=== PATIENT | female | born 1945 | race Caucasian/White ===

== ENCOUNTER 2019-09-05 19:43 | Inpatient (IN) ==
[2019-09-05] MEDS ORDERED: GuaiFENesin Liq 200 MG/10 ML UDC PO PRN (23:12)
[2019-09-05] MEDS ORDERED: Furosemide 20 MG TABLET PO PRN (23:13)
[2019-09-05] MEDS ORDERED: Albuterol 2.5 MG/3 ML NEBULIZER IH PRN (23:35)
[2019-09-05] MEDS: hydrOXYzine pamoate 25 MG CAPSULE PO PRN (23:48)
[2019-09-05] MEDS: Budesonide/Formoterol 160/4.5 1 PUFF INH IH SCH (23:59)
[2019-09-06] MEDS: Budesonide/Formoterol 160/4.5 1 PUFF INH IH SCH ×2 (08:24→22:38)
[2019-09-06] MEDS: Tiotropium 18 MCG inhalation IH SCH (08:24)
[2019-09-06] MEDS: Ammonium Lactate 30 APPL/225 GM BOTTLE TP SCH ×2 (09:35→20:20)
[2019-09-06] MEDS: Aspirin Enteric Coated 81 MG Tablet PO SCH (09:36)
[2019-09-06] MEDS: Gabapentin 100 MG CAPSULE PO SCH ×3 (09:36→20:19)
[2019-09-06] MEDS: Furosemide 20 MG TABLET PO SCH (09:37)
[2019-09-06] MEDS: Doxycycline 100 MG CAPSULE PO SCH ×2 (09:37→20:20)
[2019-09-06] MEDS: amLODIPine 5 MG TABLET PO SCH (09:37)
[2019-09-06] MEDS: predniSONE 20 MG TABLET PO SCH (09:37)
[2019-09-06] MEDS: Clobetasol Propionate 0.05% 15 GM Cream Tube TP SCH ×2 (09:38→20:21)
[2019-09-06] MEDS: DALIRESP 500 MCG PO SCH (09:38)
[2019-09-06 10:28] LABS: Hematocrit 39.5 % (35.3-44.9); Hemoglobin 12.7 g/dL (11.5-15.4); Mean Corpuscular HGB Conc 32.2 g/dL (31.6-35.5); Mean Corpuscular Hemoglobin 28.7 pg (28.0-33.3); Mean Corpuscular Volume 89.2 fL (83.0-100.0); Platelet Count 370 K/mcL (140-400); Red Blood Count 4.43 M/mcL (3.82-4.97); Red Cell Distribution Width 12.7 % (11.5-14.5); White Blood Count 15.6 K/mcL (4.3-11.1)
[2019-09-06 10:46] LABS: BUN/Creatinine Ratio 27 (6-26); Blood Urea Nitrogen 26 mg/dL (8-23); Calcium 8.9 mg/dL (8.6-10.3); Carbon Dioxide 35 mEq/L (23-29); Chloride 96 mEq/L (98-107); Glucose 95 mg/dL (70-105); Osmolality,Calculated 289 (280-300); Potassium 3.3 mEq/L (3.5-5.1); Sodium 137 mEq/L (136-145); eGFR For African Americans > 60 (> 60); eGFR For Non-African Americans 56 (> 60)
[2019-09-06] MEDS ORDERED: PrednisoLONE Oral Soln 15 MG/5 ML UDC PO ONE (23:01)
[2019-09-07] MEDS: Budesonide/Formoterol 160/4.5 1 PUFF INH IH SCH ×2 (08:29→21:56)
[2019-09-07] MEDS: Tiotropium 18 MCG inhalation IH SCH (08:30)
[2019-09-07] MEDS: amLODIPine 5 MG TABLET PO SCH (08:57)
[2019-09-07] MEDS: Aspirin Enteric Coated 81 MG Tablet PO SCH (08:57)
[2019-09-07] MEDS: Doxycycline 100 MG CAPSULE PO SCH ×2 (08:57→21:09)
[2019-09-07] MEDS: predniSONE 20 MG TABLET PO SCH (08:58)
[2019-09-07] MEDS: Ammonium Lactate 30 APPL/225 GM BOTTLE TP SCH ×2 (08:58→21:10)
[2019-09-07] MEDS: Furosemide 20 MG TABLET PO SCH (08:58)
[2019-09-07] MEDS: Gabapentin 100 MG CAPSULE PO SCH ×3 (08:58→21:09)
[2019-09-07] MEDS: Clobetasol Propionate 0.05% 15 GM Cream Tube TP SCH ×2 (08:59→21:10)
[2019-09-07] MEDS: DALIRESP 500 MCG PO SCH (08:59)
[2019-09-07] MEDS ORDERED: *HR* OxyCODONE Immed Rel 5 MG TABLET PO PRN (20:24)
[2019-09-08] MEDS: hydrOXYzine pamoate 25 MG CAPSULE PO PRN ×2 (01:50→10:29)
[2019-09-08] MEDS: Ammonium Lactate 30 APPL/225 GM BOTTLE TP SCH ×2 (08:54→20:38)
[2019-09-08] MEDS: Gabapentin 100 MG CAPSULE PO SCH ×3 (08:54→20:37)
[2019-09-08] MEDS: Furosemide 20 MG TABLET PO SCH (08:54)
[2019-09-08] MEDS: predniSONE 10 MG TABLET PO SCH (08:54)
[2019-09-08] MEDS: amLODIPine 5 MG TABLET PO SCH (08:55)
[2019-09-08] MEDS: Aspirin Enteric Coated 81 MG Tablet PO SCH (08:55)
[2019-09-08] MEDS: Doxycycline 100 MG CAPSULE PO SCH ×2 (08:55→20:37)
[2019-09-08] MEDS: Clobetasol Propionate 0.05% 15 GM Cream Tube TP SCH ×2 (08:56→20:38)
[2019-09-08 09:52] LABS: Basophils % 0.2 %; Eosinophils # 0.2 K/mcL (0.0-0.6); Eosinophils % 1.3 %; Hematocrit 37.7 % (35.3-44.9); Hemoglobin 12.5 g/dL (11.5-15.4); Immature Granulocytes % 1.4 % (0-4); Lymphocytes # 3.7 K/mcL (0.6-4.6); Lymphocytes % 23.1 %; Mean Corpuscular HGB Conc 33.2 g/dL (31.6-35.5); Mean Corpuscular Hemoglobin 29.2 pg (28.0-33.3); Mean Corpuscular Volume 88.1 fL (83.0-100.0); Mean Platelet Volume 10.1 fL (9.4-12.4); Monocytes % 6.2 %; Neutrophils # 10.8 K/mcL (1.6-8.9); Platelet Count 320 K/mcL (140-400); Red Blood Count 4.28 M/mcL (3.82-4.97); Red Cell Distribution Width 12.7 % (11.5-14.5); Segmented Neutrophils % 67.8 %; White Blood Count 15.9 K/mcL (4.3-11.1)
[2019-09-08 10:08] LABS: BUN/Creatinine Ratio 26 (6-26); Blood Urea Nitrogen 21 mg/dL (8-23); Calcium 8.6 mg/dL (8.6-10.3); Carbon Dioxide 34 mEq/L (23-29); Chloride 99 mEq/L (98-107); Glucose 77 mg/dL (70-105); Osmolality,Calculated 290 (280-300); Potassium 3.8 mEq/L (3.5-5.1); Sodium 139 mEq/L (136-145); eGFR For African Americans > 60 (> 60); eGFR For Non-African Americans > 60 (> 60)
[2019-09-08] MEDS: DALIRESP 500 MCG PO SCH (10:21)
[2019-09-08] MEDS: Tiotropium 18 MCG inhalation IH SCH (10:44)
[2019-09-08] MEDS: Budesonide/Formoterol 160/4.5 1 PUFF INH IH SCH ×2 (10:44→21:19)
[2019-09-09] MEDS: hydrOXYzine pamoate 25 MG CAPSULE PO PRN (03:23)
[2019-09-09 08:09] LABS: Basophils % 0.2 %; Eosinophils # 0.2 K/mcL (0.0-0.6); Eosinophils % 1.2 %; Hematocrit 38.5 % (35.3-44.9); Hemoglobin 12.5 g/dL (11.5-15.4); Immature Granulocytes % 1.7 % (0-4); Lymphocytes # 4.4 K/mcL (0.6-4.6); Lymphocytes % 24.1 %; Mean Corpuscular HGB Conc 32.5 g/dL (31.6-35.5); Mean Corpuscular Hemoglobin 29.3 pg (28.0-33.3); Mean Corpuscular Volume 90.4 fL (83.0-100.0); Mean Platelet Volume 10.1 fL (9.4-12.4); Monocytes # 1.2 K/mcL (0.0-1.3); Monocytes % 6.4 %; Neutrophils # 12.1 K/mcL (1.6-8.9); Platelet Count 327 K/mcL (140-400); Red Blood Count 4.26 M/mcL (3.82-4.97); Segmented Neutrophils % 66.4 %; White Blood Count 18.2 K/mcL (4.3-11.1)
[2019-09-09 08:17] LABS: BUN/Creatinine Ratio 27 (6-26); Blood Urea Nitrogen 22 mg/dL (8-23); Calcium 8.5 mg/dL (8.6-10.3); Carbon Dioxide 38 mEq/L (23-29); Chloride 99 mEq/L (98-107); Glucose 78 mg/dL (70-105); Osmolality,Calculated 290 (280-300); Potassium 4.2 mEq/L (3.5-5.1); Sodium 139 mEq/L (136-145); eGFR For African Americans > 60 (> 60); eGFR For Non-African Americans > 60 (> 60)
[2019-09-09] MEDS: Aspirin Enteric Coated 81 MG Tablet PO SCH (09:01)
[2019-09-09] MEDS: Gabapentin 100 MG CAPSULE PO SCH ×3 (09:01→20:17)
[2019-09-09] MEDS: Furosemide 20 MG TABLET PO SCH (09:02)
[2019-09-09] MEDS: Doxycycline 100 MG CAPSULE PO SCH ×2 (09:02→20:17)
[2019-09-09] MEDS: amLODIPine 5 MG TABLET PO SCH (09:02)
[2019-09-09] MEDS: predniSONE 10 MG TABLET PO SCH (09:02)
[2019-09-09] MEDS: DALIRESP 500 MCG PO SCH (09:03)
[2019-09-09] MEDS: Ammonium Lactate 30 APPL/225 GM BOTTLE TP SCH ×2 (09:03→20:18)
[2019-09-09] MEDS: Clobetasol Propionate 0.05% 15 GM Cream Tube TP SCH ×2 (09:04→20:18)
[2019-09-09] MEDS: Tiotropium 18 MCG inhalation IH SCH (10:00)
[2019-09-09] MEDS: Budesonide/Formoterol 160/4.5 1 PUFF INH IH SCH ×2 (10:02→22:34)
[2019-09-10] MEDS: Ammonium Lactate 30 APPL/225 GM BOTTLE TP SCH ×2 (07:57→21:17)
[2019-09-10] MEDS: amLODIPine 5 MG TABLET PO SCH (07:57)
[2019-09-10] MEDS: Aspirin Enteric Coated 81 MG Tablet PO SCH (07:57)
[2019-09-10] MEDS: predniSONE 10 MG TABLET PO SCH (07:57)
[2019-09-10] MEDS: Doxycycline 100 MG CAPSULE PO SCH ×2 (07:57→21:17)
[2019-09-10] MEDS: Furosemide 20 MG TABLET PO SCH (07:57)
[2019-09-10] MEDS: Gabapentin 100 MG CAPSULE PO SCH ×3 (07:57→21:17)
[2019-09-10] MEDS: Clobetasol Propionate 0.05% 15 GM Cream Tube TP SCH ×2 (07:58→21:18)
[2019-09-10] MEDS: DALIRESP 500 MCG PO SCH (07:58)
[2019-09-10] MEDS: Tiotropium 18 MCG inhalation IH SCH (10:22)
[2019-09-10] MEDS: Budesonide/Formoterol 160/4.5 1 PUFF INH IH SCH ×2 (10:22→22:12)
[2019-09-11] MEDS: Aspirin Enteric Coated 81 MG Tablet PO SCH (08:17)
[2019-09-11] MEDS: Doxycycline 100 MG CAPSULE PO SCH ×2 (08:17→20:27)
[2019-09-11] MEDS: Furosemide 20 MG TABLET PO SCH (08:18)
[2019-09-11] MEDS: Gabapentin 100 MG CAPSULE PO SCH ×3 (08:18→20:27)
[2019-09-11] MEDS: predniSONE 10 MG TABLET PO SCH (08:18)
[2019-09-11] MEDS: Ammonium Lactate 30 APPL/225 GM BOTTLE TP SCH ×2 (08:19→20:27)
[2019-09-11] MEDS: Clobetasol Propionate 0.05% 15 GM Cream Tube TP SCH ×2 (08:19→20:27)
[2019-09-11] MEDS: amLODIPine 5 MG TABLET PO SCH (08:19)
[2019-09-11] MEDS: DALIRESP 500 MCG PO SCH (08:19)
[2019-09-11] MEDS: Tiotropium 18 MCG inhalation IH SCH (09:13)
[2019-09-11] MEDS: Budesonide/Formoterol 160/4.5 1 PUFF INH IH SCH ×2 (09:14→22:42)
[2019-09-12 06:47] LABS: Hematocrit 39.9 % (35.3-44.9); Hemoglobin 12.7 g/dL (11.5-15.4); Mean Corpuscular HGB Conc 31.8 g/dL (31.6-35.5); Mean Corpuscular Hemoglobin 28.9 pg (28.0-33.3); Mean Corpuscular Volume 90.7 fL (83.0-100.0); Mean Platelet Volume 10.4 fL (9.4-12.4); Platelet Count 281 K/mcL (140-400); Red Cell Distribution Width 12.8 % (11.5-14.5); White Blood Count 19.3 K/mcL (4.3-11.1)
[2019-09-12 07:07] LABS: BUN/Creatinine Ratio 36 (6-26); Blood Urea Nitrogen 30 mg/dL (8-23); Calcium 8.2 mg/dL (8.6-10.3); Carbon Dioxide 36 mEq/L (23-29); Chloride 98 mEq/L (98-107); Glucose 86 mg/dL (70-105); Osmolality,Calculated 289 (280-300); Potassium 4.2 mEq/L (3.5-5.1); Sodium 137 mEq/L (136-145); eGFR For African Americans > 60 (> 60); eGFR For Non-African Americans > 60 (> 60)
[2019-09-12] MEDS: Budesonide/Formoterol 160/4.5 1 PUFF INH IH SCH ×2 (09:20→22:42)
[2019-09-12] MEDS: Tiotropium 18 MCG inhalation IH SCH (09:21)
[2019-09-12] MEDS ORDERED: Ondansetron ODT 4 MG TAB.RAPDIS SL PRN (09:23)
[2019-09-12] MEDS: Ammonium Lactate 30 APPL/225 GM BOTTLE TP SCH ×2 (09:34→22:02)
[2019-09-12] MEDS: DALIRESP 500 MCG PO SCH (09:35)
[2019-09-12] MEDS: Doxycycline 100 MG CAPSULE PO SCH ×2 (09:36→22:02)
[2019-09-12] MEDS: Acetaminophen 325 MG TABLET PO PRN (09:36)
[2019-09-12] MEDS: Furosemide 20 MG TABLET PO SCH (09:37)
[2019-09-12] MEDS: amLODIPine 5 MG TABLET PO SCH (09:37)
[2019-09-12] MEDS: predniSONE 20 MG TABLET PO SCH (09:37)
[2019-09-12] MEDS: Gabapentin 100 MG CAPSULE PO SCH ×3 (09:37→22:02)
[2019-09-12] MEDS: Aspirin Enteric Coated 81 MG Tablet PO SCH (09:37)
[2019-09-12] MEDS: Clobetasol Propionate 0.05% 15 GM Cream Tube TP SCH ×2 (22:01→22:02)
[2019-09-13] MEDS: Acetaminophen 325 MG TABLET PO PRN (05:10)
[2019-09-13] MEDS: hydrOXYzine pamoate 25 MG CAPSULE PO PRN ×2 (05:11→21:41)
[2019-09-13] MEDS: Doxycycline 100 MG CAPSULE PO SCH ×2 (08:37→21:38)
[2019-09-13] MEDS: amLODIPine 5 MG TABLET PO SCH (08:37)
[2019-09-13] MEDS: Aspirin Enteric Coated 81 MG Tablet PO SCH (08:37)
[2019-09-13] MEDS: predniSONE 20 MG TABLET PO SCH (08:37)
[2019-09-13] MEDS: Furosemide 20 MG TABLET PO SCH (08:37)
[2019-09-13] MEDS: Gabapentin 100 MG CAPSULE PO SCH ×3 (08:37→21:38)
[2019-09-13] MEDS: DALIRESP 500 MCG PO SCH (08:40)
[2019-09-13] MEDS: Clobetasol Propionate 0.05% 15 GM Cream Tube TP SCH ×2 (08:40→21:38)
[2019-09-13] MEDS: Ammonium Lactate 30 APPL/225 GM BOTTLE TP SCH ×2 (08:40→21:38)
[2019-09-13] MEDS: Tiotropium 18 MCG inhalation IH SCH (10:29)
[2019-09-13] MEDS: Budesonide/Formoterol 160/4.5 1 PUFF INH IH SCH ×2 (10:30→22:31)
[2019-09-14] MEDS: Doxycycline 100 MG CAPSULE PO SCH ×2 (09:21→20:22)
[2019-09-14] MEDS: Aspirin Enteric Coated 81 MG Tablet PO SCH (09:21)
[2019-09-14] MEDS: Ammonium Lactate 30 APPL/225 GM BOTTLE TP SCH ×2 (09:21→20:19)
[2019-09-14] MEDS: DALIRESP 500 MCG PO SCH (09:22)
[2019-09-14] MEDS: Furosemide 20 MG TABLET PO SCH (09:22)
[2019-09-14] MEDS: predniSONE 20 MG TABLET PO SCH (09:22)
[2019-09-14] MEDS: Gabapentin 100 MG CAPSULE PO SCH ×3 (09:22→20:22)
[2019-09-14] MEDS: amLODIPine 5 MG TABLET PO SCH (09:22)
[2019-09-14] MEDS: Clobetasol Propionate 0.05% 15 GM Cream Tube TP SCH ×2 (09:24→20:22)
[2019-09-14] MEDS: Budesonide/Formoterol 160/4.5 1 PUFF INH IH SCH ×2 (10:23→21:54)
[2019-09-14] MEDS: Tiotropium 18 MCG inhalation IH SCH (10:23)
[2019-09-15] MEDS: amLODIPine 5 MG TABLET PO SCH (08:41)
[2019-09-15] MEDS: Ammonium Lactate 30 APPL/225 GM BOTTLE TP SCH ×2 (08:42→22:01)
[2019-09-15] MEDS: Aspirin Enteric Coated 81 MG Tablet PO SCH (08:42)
[2019-09-15] MEDS: Doxycycline 100 MG CAPSULE PO SCH ×2 (08:42→21:59)
[2019-09-15] MEDS: predniSONE 10 MG TABLET PO SCH (08:42)
[2019-09-15] MEDS: Furosemide 20 MG TABLET PO SCH (08:42)
[2019-09-15] MEDS: Gabapentin 100 MG CAPSULE PO SCH ×3 (08:42→21:59)
[2019-09-15] MEDS: DALIRESP 500 MCG PO SCH (08:43)
[2019-09-15] MEDS: Clobetasol Propionate 0.05% 15 GM Cream Tube TP SCH ×2 (08:43→22:00)
[2019-09-15] MEDS: Budesonide/Formoterol 160/4.5 1 PUFF INH IH SCH ×2 (09:52→21:12)
[2019-09-15] MEDS: Tiotropium 18 MCG inhalation IH SCH (09:53)
[2019-09-15] MEDS: hydrOXYzine pamoate 25 MG CAPSULE PO PRN (22:07)
[2019-09-16] MEDS: Tiotropium 18 MCG inhalation IH SCH (08:39)
[2019-09-16] MEDS: Budesonide/Formoterol 160/4.5 1 PUFF INH IH SCH ×2 (08:39→21:37)
[2019-09-16] MEDS: predniSONE 10 MG TABLET PO SCH (08:46)
[2019-09-16] MEDS: amLODIPine 5 MG TABLET PO SCH (08:46)
[2019-09-16] MEDS: Aspirin Enteric Coated 81 MG Tablet PO SCH (08:47)
[2019-09-16] MEDS: DALIRESP 500 MCG PO SCH (08:47)
[2019-09-16] MEDS: Furosemide 20 MG TABLET PO SCH (08:47)
[2019-09-16] MEDS: Gabapentin 100 MG CAPSULE PO SCH ×3 (08:47→21:31)
[2019-09-16] MEDS: Doxycycline 100 MG CAPSULE PO SCH ×2 (08:47→21:31)
[2019-09-16] MEDS: Clobetasol Propionate 0.05% 15 GM Cream Tube TP SCH ×2 (08:47→21:31)
[2019-09-16] MEDS: Ammonium Lactate 30 APPL/225 GM BOTTLE TP SCH ×2 (08:47→21:31)
[2019-09-16] MEDS: hydrOXYzine pamoate 25 MG CAPSULE PO PRN (21:31)
[2019-09-17 06:12] LABS: Hematocrit 35.2 % (35.3-44.9); Hemoglobin 11.2 g/dL (11.5-15.4); Mean Corpuscular HGB Conc 31.8 g/dL (31.6-35.5); Mean Corpuscular Hemoglobin 28.9 pg (28.0-33.3); Mean Corpuscular Volume 90.7 fL (83.0-100.0); Mean Platelet Volume 10.7 fL (9.4-12.4); Platelet Count 254 K/mcL (140-400); Red Blood Count 3.88 M/mcL (3.82-4.97); Red Cell Distribution Width 13.1 % (11.5-14.5)
[2019-09-17 06:25] LABS: BUN/Creatinine Ratio 28 (6-26); Blood Urea Nitrogen 25 mg/dL (8-23); Calcium 8.5 mg/dL (8.6-10.3); Carbon Dioxide 34 mEq/L (23-29); Chloride 99 mEq/L (98-107); Glucose 85 mg/dL (70-105); Osmolality,Calculated 286 (280-300); Potassium 4.9 mEq/L (3.5-5.1); Sodium 136 mEq/L (136-145); eGFR For African Americans > 60 (> 60); eGFR For Non-African Americans > 60 (> 60)
[2019-09-17] MEDS: Tiotropium 18 MCG inhalation IH SCH (09:53)
[2019-09-17] MEDS: Budesonide/Formoterol 160/4.5 1 PUFF INH IH SCH ×2 (09:53→21:16)
[2019-09-17] MEDS: Gabapentin 100 MG CAPSULE PO SCH ×3 (10:43→20:10)
[2019-09-17] MEDS: Aspirin Enteric Coated 81 MG Tablet PO SCH (10:43)
[2019-09-17] MEDS: predniSONE 10 MG TABLET PO SCH (10:43)
[2019-09-17] MEDS: Doxycycline 100 MG CAPSULE PO SCH ×2 (10:43→20:10)
[2019-09-17] MEDS: amLODIPine 5 MG TABLET PO SCH (10:43)
[2019-09-17] MEDS: Furosemide 20 MG TABLET PO SCH (10:43)
[2019-09-17] MEDS: Ammonium Lactate 30 APPL/225 GM BOTTLE TP SCH ×2 (10:44→20:10)
[2019-09-17] MEDS: DALIRESP 500 MCG PO SCH (10:51)
[2019-09-17] MEDS: Clobetasol Propionate 0.05% 15 GM Cream Tube TP SCH ×2 (12:49→20:11)
[2019-09-17] MEDS: hydrOXYzine pamoate 25 MG CAPSULE PO PRN (20:13)
[2019-09-18] MEDS: Furosemide 20 MG TABLET PO SCH (09:25)
[2019-09-18] MEDS: Doxycycline 100 MG CAPSULE PO SCH ×2 (09:25→20:24)
[2019-09-18] MEDS: Aspirin Enteric Coated 81 MG Tablet PO SCH (09:26)
[2019-09-18] MEDS: Gabapentin 100 MG CAPSULE PO SCH ×3 (09:26→20:24)
[2019-09-18] MEDS: amLODIPine 5 MG TABLET PO SCH (09:28)
[2019-09-18] MEDS: Ammonium Lactate 30 APPL/225 GM BOTTLE TP SCH ×2 (09:33→20:24)
[2019-09-18] MEDS: Clobetasol Propionate 0.05% 15 GM Cream Tube TP SCH ×2 (09:34→20:24)
[2019-09-18] MEDS: DALIRESP 500 MCG PO SCH (09:38)
[2019-09-18] MEDS: Budesonide/Formoterol 160/4.5 1 PUFF INH IH SCH ×2 (10:50→22:51)
[2019-09-18] MEDS: Tiotropium 18 MCG inhalation IH SCH (10:51)
[2019-09-18] MEDS: hydrOXYzine pamoate 25 MG CAPSULE PO PRN (23:27)
[2019-09-19 08:34] VITALS: BP 112/70
[2019-09-19] MEDS: Doxycycline 100 MG CAPSULE PO SCH (09:26)
[2019-09-19] MEDS: Gabapentin 100 MG CAPSULE PO SCH (09:26)
[2019-09-19] MEDS: Aspirin Enteric Coated 81 MG Tablet PO SCH (09:26)
[2019-09-19] MEDS: Furosemide 20 MG TABLET PO SCH (09:27)
[2019-09-19] MEDS: amLODIPine 5 MG TABLET PO SCH (09:27)
[2019-09-19] MEDS: hydrOXYzine pamoate 25 MG CAPSULE PO PRN (09:27)
[2019-09-19] MEDS: Clobetasol Propionate 0.05% 15 GM Cream Tube TP SCH (09:28)
[2019-09-19] MEDS: Ammonium Lactate 30 APPL/225 GM BOTTLE TP SCH (09:28)
[2019-09-19] MEDS: DALIRESP 500 MCG PO SCH (09:36)
[2019-09-19] MEDS: Tiotropium 18 MCG inhalation IH SCH (10:30)
[2019-09-19] MEDS: Budesonide/Formoterol 160/4.5 1 PUFF INH IH SCH (10:31)
== END 2019-09-19 15:00 | disposition home health service (06) | DRG 189 ==
LOC: INPPIK 19:50
PROVIDERS: ADMIT Family Medicine; ATTEND Family Medicine